=== PATIENT | female | born 1965 | race Caucasian/White ===

== ENCOUNTER 2024-03-30 08:21 | Emergency (ER) | payer SELFPAY ==
[2024-03-30] VITALS (13 sets, daily range): BP systolic 96–119; BP diastolic 54–88; PULSE 109–120; RESP 12–23; TEMP 36.4; O2SAT 95–98
--- NOTE | ~2024-03-30 | CT_ITS ---
EXAMINATION: CTA chest PE protocol DATE: 03/30/2024 09:58 INDICATION: Tachycardia. Shortness of breath. TECHNIQUE: Computed tomography angiography (CTA) of the chest was performed with 100 mL Omnipaque-350 intravenous contrast timed to evaluate the pulmonary arteries. Coronal maximum intensity projection 3D-reconstructions were created by the technologist. Automated exposure control and iterative reconst ruction technique were employed. The dose-length product was 566.28 mGy-cm. COMPARISON: None. FINDINGS: The lungs demonstrate mosaic attenuation. No pleural effusion. There is right ventricular e nlargement of the heart. No pericardial effusion. There are acute pulmonary emboli involving all lobe s including a saddle embolus in main pulmonary artery. There is a small sliding hiatal hernia. There are changes of gastric sleeve procedure. There are changes of anterior fusion procedure in cervical s pine. There is severe thoracic spondylosis. There is mild chronic anterior wedging of multiple verteb ral bodies. IMPRESSION: 1. Extensive acute pulmonary emboli with right heart strain. I called this result to Dr. Ragland. Reviewed, dictated and finalized at location A. IMPRESSION: 1. Extensive acute pulmonary emboli with right heart strain. I called this resu lt to Dr. Ragland.
--- NOTE | 2024-03-30 08:30 | ECG_ITS ---
Test Date: 2024-03-30 08:30:17 Measurements Intervals Cascade Rate: 115 P: 1 WA: 147 QRS: 16 QRSD: 112 T: 7 QT: 356 QTc: 493 Interpretive Statements SINUS TACHYCARDIA LEFT ATRIAL ENLARGEMENT [-0.15mV P WAVE IN V1/V2] INCOMPLETE RIGHT BUNDLE BRANCH BLOCK [90+ ms QRS DURATION, TERMINAL R IN V1/V2, 40+ ms S IN I/aVL/V4/V5/V6] MINIMAL ST DEPRESSION [0.025+ mV ST DEPRESSION] ABNORMAL ECG No previous ECG available for comparison Electronically Signed On 03-31-2024 15:04:21 CDT by Sanket Pierce M.D.
--- NOTE | 2024-03-30 08:38 | PC.NURSE ---
BS 254, fluids infusing
[2024-03-30] MEDS: MECLIZINE HCL 25 MG TABLET PO (08:58)
[2024-03-30] MEDS: SODIUM CHLORIDE 0.9% IV 1,000 ML 999 ML IV CONT (08:59)
[2024-03-30 09:24] LABS: Basophils Percent Auto 0.4 % (0.2-1.2); Eosinophils Percent Auto 0.3 % (0-4.4); Hemoglobin 13.5 g/dL (12.0-15.0); Immature Granulocyte Absolute 0.04 K/mm3 (0.00-0.031); Immature Granulocyte Percent A 0.4 % (0-0.5); Lymphocytes Absolute Auto 1.28 K/mm3 (0.9-3.2); Lymphocytes Percent Auto 12.2 % (18.3-44.2); Mean Corpuscular HGB Conc 32.1 g/dl (32-36); Mean Corpuscular Hemoglobin 27.9 pg (26-34); Mean Corpuscular Volume 86.8 fl (80-100); Mean Platelet Volume 10.3 fl (7.4-10.4); Monocytes Absolute Auto 0.6 K/mm3 (0.1-0.6); Monocytes Percent Auto 6.1 % (2.6-8.5); Neutrophils Absolute Auto 8.4 K/mm3 (1.3-6.7); Neutrophils Percent Auto 80.6 % (45.5-73.1); Platelet Count Result 146 k/mm3 (150-375); Red Blood Count 4.84 M/mm3 (4.2-5.4); Red Cell Distribution Width 16.1 % (11.5-14.5); White Blood Count 10.5 K/mm3 (4.5-10.0)
--- NOTE | 2024-03-30 09:27 | ED.GENADULT ---
HPI - General Adult General Chief complaint: Shortness of Breath/Dyspnea Stated complaint: dyspnea Time Seen by Provider: 03/30/24 08:23 History of Present Illness HPI narrative: Patient is a 59-year-old female who presents ER with shortness of breath and lightheadedness. She slept in her car at a gas station last night when she got up to shower she became lightheaded sweaty and short of breath. This occurred again when she was walking inside the station. No new chest pain or chest pressure. No leg swelling. No fevers or chills. Reports she was drinking water adequately yesterday while she was driving from [place]. She is currently going to [place]. Denies any history of medical issues. No ringing in the ears. No sinus congestion. No cough. BP in the 70's for EMS. Related Data Allergies Allergy/AdvReac Type Severity Reaction Status Date / Time No Known Allergies Allergy Verified 03/30/24 08:35 Review of Systems Review of Systems: All systems reviewed & are unremarkable except as noted in HPI and below Constitutional: Constitutional: Reports no additional constitutional complaints ENT: Reports system reviewed and no additional complaints, except as documented Cardiovascular: Cardiovascular: Reports no additional cardiovascular complaints Respiratory: Respiratory: Denies cough, Reports dyspnea and Denies wheezing Gastrointestinal: Gastrointestinal: Reports no additional gastrointestinal complaints Neurologic: Reports dizziness, Denies headache(s), Denies focal weakness and Denies numbness PMFSH Past Medical History Medical History (Updated 03/30/24 @ 11:16 by Mark Ragland MD) Healthy female adult Surgical History Surgical History (Updated 03/30/24 @ 10:12 by Mark Ragland MD) H/O gastric sleeve Exam Narrative: GENERAL: Well-appearing, well-nourished, and in no acute distress. HEAD: Normocephalic, atraumatic. EYES: PERRL and EOMI. ENT: Mucous membranes moist. TMs normal bilaterally. CHEST: Clear to auscultation. No respiratory distress. HEART: Tachycardic regular. Normal peripheral pulses. ABDOMEN: Soft, nontender, nondistended. EXTREMITIES: Normal range of motion. No edema. SKIN: Warm, dry, no rash. NEURO: Alert and oriented x3. PSYCH: Normal mood and affect. Course Course Emergency Course: Patient with saddle pulmonary embolus and evidence of right heart strain. Troponin elevated. Discussed case with [facility]. Interventional radiologist Dr. Lynn to recommends transfer to the ER. Patient accepted by Dr. Powers. Vital Signs Vital signs: Vital Signs Temperature 97.6 F 03/30/24 08:19 Pulse Rate 116 H 03/30/24 08:19 Respiratory Rate 18 03/30/24 08:19 Blood Pressure 106/73 03/30/24 08:19 Pulse Oximetry 95 03/30/24 08:19 Oxygen Delivery Room Air 03/30/24 08:19 Temperature 97.6 F 03/30/24 08:19 Pulse Rate 113 H 03/30/24 11:45 Respiratory Rate 18 03/30/24 11:45 Blood Pressure 105/73 03/30/24 11:45 Pulse Oximetry 96 03/30/24 11:45 Oxygen Delivery Room Air 03/30/24 09:37 Medical Decision Making Vital Signs Vital Signs: Vital Signs Temperature 97.6 F 03/30/24 08:19 Pulse Rate 116 H 03/30/24 08:19 Respiratory Rate 18 03/30/24 08:19 Blood Pressure 106/73 03/30/24 08:19 Pulse Oximetry 95 03/30/24 08:19 Oxygen Delivery Room Air 03/30/24 08:19 Temperature 97.6 F 03/30/24 08:19 Pulse Rate 113 H 03/30/24 11:45 Respiratory Rate 18 03/30/24 11:45 Blood Pressure 105/73 03/30/24 11:45 Pulse Oximetry 96 03/30/24 11:45 Oxygen Delivery Room Air 03/30/24 09:37 Lab Data 03/30/24 09:18 03/30/24 09:18 Labs: Lab Results 03/30/24 03/30/24 03/30/24 Range/Units 08:28 09:18 09:33 WBC 10.5 H (4.5-10.0) K/mm3 RBC 4.84 (4.2-5.4) M/mm3 Hgb 13.5 (12.0-15.0) g/dL Hct 42.0 (37.0-47.0) % MCV 86.8 (80-100) fl MCH 27.9
[2024-03-30 09:34] LABS: Prothrombin Time 13.3 Seconds (11.1-14.7)
[2024-03-30 09:35] LABS: Partial Thromboplastin Time 22.6 Seconds (22.3-36.8)
[2024-03-30 09:37] LABS: Alanine Aminotransferase 42 U/L (6-35); Albumin Level 4.2 g/dL (3.5-5.1); Alkaline Phosphatase 57 U/L (38-126); Anion Gap 11 mmol/L (4-12); Aspartate Amino Transferase 65 U/L (14-36); Bilirubin,Total 0.9 mg/dL (0.2-1.3); Blood Urea Nitrogen 19 mg/dL (7-17); Calcium 8.1 mg/dL (8.4-10.2); Carbon Dioxide 20 mmol/L (22-30); Chloride 110 mmol/L (98-107); Estimated CRCL calculation 67 ml/min; Estimated Glomerular Filt Rate > 60; Glucose 195 mg/dL (65-110); Potassium 3.7 mmol/L (3.4-5.0); Sodium 141 mmol/L (137-145)
[2024-03-30 09:50] LABS: Appearance Urine Cloudy (Clear); Bacteria Urine 3+ /hpf; Bilirubin Urine Negative (Negative); Blood Urine Negative (Negative); Color Urine Yellow (Yellow); Glucose Urine UA Negative (Negative); Ketones Urine 1+ mg/dL (Negative); Leukocyte Esterase Ur 2+ LEU/UL (Negative); Nitrate Urine Negative (Negative); Protein Urine 1+ mg/dL (Negative); RBC Urine 0-2 /hpf (0-2); Specific Grav Ur 1.026 (1.001-1.035); Squamous Epithelial Cell Urine Many /hpf (Few); WBC Urine >100 /hpf (0-3); pH Urine 5.5 (5.0-9.0)
[2024-03-30 09:54] LABS: Add Urine Microscopic? YES
[2024-03-30 10:12] LABS: Glucose Point of Care 251 mg/dl (65-105)
[2024-03-30] MEDS: HEPARIN SODIUM 5,000 UNITS/ML VIAL 8000 UNITS IV PUSH (10:14)
[2024-03-30] MEDS: HEPARIN SOD/D5W 100 UNITS/ML 25,000 UNITS/250 ML BAG 13 UNITS IV CONT (10:30)
[2024-03-30 10:35] LABS: NT Pro B Type Natriuretic Pept < 20 pg/mL (19.9-100); Troponin I 0.454 ng/mL (0.000-0.034)
== END 2024-03-30 12:02 | disposition short-term general hospital (02) ==
PROVIDERS: Emergency Provider Emergency Medicine
DX: I26.92 Saddle embolus of pulmonary artery without acute cor pulmonale (principal); I51.9 Heart disease, unspecified; Z98.84 Bariatric surgery status; R00.0 Tachycardia, unspecified; I45.10 Unspecified right bundle-branch block; R94.31 Abnormal electrocardiogram [ECG] [EKG]
CPT/HCPCS: 36415; 71275; 80053; 81001; 82948; 83880; 84484; 85025; 85610; 85730; 87086; 87088; 93005; 96361; 96365; 99285; A9270; J1644; J7030; Q9967